=== PATIENT | male | born 1950 | race Caucasian/White ===

== ENCOUNTER 2017-05-24 13:52 | Inpatient (IN) | payer MEDICARE, OTHER ==
[~2017-05-24] VITALS: Ht 180.3 cm; Wt 99.1 kg
--- NOTE | 2017-05-24 14:09 | ERD ---
ER Documentation Chief Complaint Chief Complaint Fever HPI The patient is a 66-year-old male, presenting to the ER because of acute fever of 190 unknown duration. He is unable to provide any history, the history is obtained from mitochondrial disorders counselor in medical record Past medical history: Dysphagia, BPH, seizure, sleep apnea, GERD Past surgical history: G-tube ROS Unable to perform due to his condition Medications Home Meds Reported Medications Levetiracetam* (Keppra*) 500 Mg/5 Ml Solution, 500 MG GTB BID, BOTTLE 05/24/17 Divalproex Sodium* (Depakote* Sprinkle) 125 Mg Cap.sprink, 1000 MG GTB TID, #90 CAP 05/24/17 Dextran 70/Hypromellose (Artificials Tears Drops) 30 Ml Drops, 1 DROP BOTH EYES BID, BOTTLE 05/24/17 Magnesium Hydroxide* (Milk Of Magnesia*) 400 Mg/5 Ml Oral.susp, 30 ML GTB QHS Y for CONSTIPATION, ML 05/24/17 Bisacodyl* (Dulcolax*) 5 Mg Tablet.dr, 10 MG GTB Q48 Y for CONSTIPATION, TAB 05/24/17 Esomeprazole Mag Trihydrate (Nexium) 40 Mg Capsule.dr, 40 MG GTB AC BREAKFAST, # 30 CAP 05/24/17 Ascorbic Acid* (Vitamin C*) 500 Mg Capsule.sa, 500 MG GTB DAILY, CAP 05/24/17 Acetaminophen* (Acetaminophen* Susp) 325 Mg/10.15 Ml Solution, 325 MG GTB BID Y for PAIN, ML 05/24/17 Multivitamins* (Theragran*) 1 Tab Tab, 1 TAB GTB DAILY, TAB 05/24/17 Allergies Allergies: Coded Allergies: Penicillins (Unverified Allergy, Unknown, 05/24/17) aripiprazole (Unverified Allergy, Unknown, 05/24/17) Physical Exam Vitals Vital Signs Date Time Temp Pulse Resp B/P Pulse Ox O2 Delivery O2 Flow Rate FiO2 05/24/17 15:35 101.0 116 30 112/70 96 Nasal Cannula 05/24/17 14:27 Nasal Cannula 3 05/24/17 14:08 101.6 127 31 95/57 90 Physical Exam Const: No acute distress.Dehydrated Head: Atraumatic. Eyes: Normal Conjunctiva. ENT: Normal External Ears, Nose and Mouth. Neck: Full range of motion. No meningismus. Resp: Clear to auscultation bilaterally. Cardio: Regular Tachycardic Abd: Soft, non distended, normal bowel sounds, non tender. Skin: No petechiae or rashes. Back: No midline or flank tenderness. Ext: No cyanosis, or edema. Neur: Unable to perform due to his condition Psych: Unable to perform due to his condition Result Diagram: 05/24/17 1430 05/24/17 1430 Results 24 hrs Laboratory Tests Test 05/24/17 14:30 05/24/17 14:44 05/24/17 15:20 05/24/17 15:33 White Blood Count 23.310^3/ul Red Blood Count 4.5210^6/ul Hemoglobin 12.8g/dl Hematocrit 39.7% Mean Corpuscular Volume 87.8fl Mean Corpuscular Hemoglobin 28.3pg Mean Corpuscular Hemoglobin Concent 32.2g/dl Red Cell Distribution Width 17.5% Platelet Count 00009^3/UL Mean Platelet Volume 11.1fl Neutrophils % 85.1% Lymphocytes % 3.1% Monocytes % 11.1% Eosinophils % 0.0% Basophils % 0.1% Nucleated Red Blood Cells % 0.0/100WBC Neutrophils # 19.910^3/ul Lymphocytes # 0.710^3/ul Monocytes # 2.610^3/ul Eosinophils # 0.010^3/ul Basophils # 0.010^3/ul Nucleated Red Blood Cells # 0.010^3/ul Prothrombin Time 14.4Sec Prothrombin Time Ratio 1.1 INR International Normalized Ratio 1.12 Activated Partial Thromboplast Time 39.4Sec Sodium Level 140mmol/L Potassium Level 4.1mmol/L Chloride Level 99mmol/L Carbon Dioxide Level 26mmol/L Anion Gap 19 Blood Urea Nitrogen 27mg/dl Creatinine 1.24mg/dl Glucose Level 160mg/dl Calcium Level 8.9mg/dl Total Bilirubin 0.5mg/dl Direct Bilirubin 0.00mg/dl Indirect Bilirubin 0.5mg/dl Aspartate Amino Transf (AST/SGOT) 21IU/L Alanine Aminotransferase (ALT/SGPT) 25IU/L Alkaline Phosphatase 75IU/L Troponin I 0.041ng/ml Total Protein 7.8g/dl Albumin 3.7g/dl Globulin 4.10g/dl Albumin/Globulin Ratio 0.90 Lactic Acid Level 3.2mmol/L Urine Color YELLOW Urine Clarity CLEAR Urine pH 6.0 Urine Specific [place] 1.014 Urine Ketones NEGATIVEmg/dL Urine Nitrite NEGATIVEmg/dL Urine Bilirubin NEGATIVEmg/dL Urine Urobilinogen NEGATIVEmg/dL Urine Leukocyte Esterase 3+Telly/ul Urine Microscopic RBC 6/HPF Urine Microscopic WBC 33/HPF Urine Bacteria FEW/HPF Urine Mucus FEW/HPF Urine Hemoglobin 2+mg/dL Urine Glucose NEGATIVEmg/dL Urine Total Protein NEGATIVEmg/dl Bedside Urine pH (LAB) 6.0 Bedside Urine Protein (LAB) 1+ Bedside Urine Glucose (UA) Negative Bedside Urine Ketones (LAB) Negative Bedside Urine Blood 2+ Bedside Urine Nitrite (LAB) Positive Bedside Urine Leukocyte Esterase (L 3+ Test 05/24/17 15:55 Lactic Acid Level 2.4mmol/L Current Medications Medications (Trade) Dose Ordered Sig/Lopez Route PRN Reason Start Time Stop Time Status Last Admin Dose Admin Sodium Chloride (NS) 2,820 ml @ 2,820 mls/hr BOLUS X1 ONCE IV 05/24/17 14:30 05/24/17 15:29 DC 05/24/17 14:36 Acetaminophen 650 mg 650 mg ONCE ONCE MI 05/24/17 16:30 05/24/17 16:31 DC Meropenem/Sodium Chloride (Merrem 500mg/50 ml(Pmx)) 50 ml @ 100 mls/hr ONCE STAT IVPB 05/24/17 16:31 05/24/17 17:00 DC 05/24/17 16:46 Procedures/MDM [place] [id number] Radiology Main Line: [phone] DIAGNOSTIC IMAGING REPORT Patient: NATO BALTAZAR : 1950 Age: 66 Sex: M MR #: [id number] DOS: 05/24/17 1415 Ordering MD: AGUSTO CATHERINE MD Location: E/R Room/Bed: PROCEDURE: Chest xray. CLINICAL INDICATION: Possible sepsis TECHNIQUE: A portable semiupright AP view of the chest was obtained. COMPARISON: None. FINDINGS: The cardiac silhouette is mildly enlarged. Lung volumes are low. There is mild pulmonary vascular congestion. The left lower lung zone is incompletely evaluated due to superimposition of the patient's hand. No focal consolidation is identified in the right lung. There is no evidence of a pleural effusion or pneumothorax. The skeletal structures and soft tissues are unremarkable. IMPRESSION: Mild cardiomegaly. Low lung volumes. Mild pulmonary vascular congestion. RPTAT:HKMK .Amber Palma MD, MD Date Time Electronically viewed and signed by .Amber Palma MD, MD on 05/24/2017 16: 09 .K/ CC: AGUSTO CATHERINE MD EKG: Read by emergency physician Rate/Rhythm: Sinus tachycardia 119 beats/min QRS, ST, T-waves: No ST elevation, no T inversion, Inferior lateral ST and T abnormality Impression: Abnormal EKG MEDICAL MAKING DECISION: The patient is a 66-year-old male, presenting with acute severe sepsis, acute cystitis, acute dehydration. He was treated with normosaline 30 mL of local, IV, vancomycin IV, meropenem IV The differential diagnoses considered include but are not limited to pneumonia, pyelonephritis Admit MDM: Patient's infectious symptoms have not stabilized and the patient is at risk of rapid decompensation. The patient will be admitted for careful hydration, antibiotic therapy, and infectious source control. Severe Sepsis criteria: Infectious source: UTI End organ damage indicated by: Lactate > 2.0 mmol/L Hypotension (SBP < 90 or >40 mmHG drop or MAP < 65) Acute Resp Failure (sat < 92% w/o oxygen) Chief Crew Scheduler > 2.0 Sepsis Management: Time of recognition of severe sepsis/septic shock:4:30 pm Within 3 hours of recognition: Blood cultures x 2 before broad-spectrum antibiotics: Yes 30 ml/kg NS bolus completed Initial lactate 3.2 Repeat lactate pending Septic Shock Assessment: Any lactic acid > 4.0 no Persistent hypotension (SBP < 90 or 40 mmHg drop, MAP < 65) despite 30 mL/kg IV fluid bolusno Critical Care: Critical care time 35 minutes excluding billable procedures Emergent fluid management while maintaining close respiratory support. Provision of immediate and broad-spectrum antibiotic therapy. Simultaneous assessment for possible sources in order to direct targeted therapy. Consideration for invasive and chemical support to prevent cardiopulmonary collapse. Departure Diagnosis: Primary Impression: Severe sepsis Additional Impressions: UTI (urinary tract infection) Dehydration Condition: Stable Comments I discussed the findings with the patient. I discussed the patient with the on- call hospitalist Dr. Garner at 4:45 PM. who was made aware of the lab, the treatment, the patient condition. The patient is admitted to telemetry Disclaimer: Inadvertent spelling and grammatical errors are likely due to EHR/ dictation software use and do not reflect on the overall quality of patient care. Also, please note that the electronic time recorded on this note does not necessarily reflect the actual time of the patient encounter. AGUSTO CATHERINE MD May 24, 2017 14:09
[2017-05-24] MEDS ORDERED: SOD CHLORIDE 0.9% IV ONE (14:30)
[2017-05-24 15:09] LABS: ABNORMAL IP MESSAGE 1; BASOPHILS % 0.1 % (0.0-2.0); HEMATOCRIT 39.7 % (42.0-52.0); HEMOGLOBIN 12.8 g/dl (14.0-18.0); LYMPHOCYTES # 0.7 10^3/ul (0.8-2.9); LYMPHOCYTES % 3.1 % (15.0-51.0); MEAN CORPUSCULAR HEMOGLOBIN 28.3 pg (29.0-33.0); MEAN CORPUSCULAR HGB CONC 32.2 g/dl (32.0-37.0); MEAN CORPUSCULAR VOLUME 87.8 fl (82.0-101.0); MEAN PLATELET VOLUME 11.1 fl (7.4-10.4); MONOCYTE # 2.6 10^3/ul (0.3-0.9); MONOCYTES % 11.1 % (0.0-11.0); NEUTROPHIL # 19.9 10^3/ul (1.6-7.5); NEUTROPHILS % 85.1 % (39.0-77.0); PLATELET COUNT 236 10^3/UL (140-415); POSITIVE DIFF @See below; RED BLOOD COUNT 4.52 10^6/ul (4.70-6.10); RED CELL DISTRIBUTION WIDTH 17.5 % (11.5-14.5); WHITE BLOOD COUNT 23.3 10^3/ul (4.8-10.8)
[2017-05-24 15:29] LABS: INR 1.12; PROTIME 14.4 Sec (12.2-14.2); PT RATIO 1.1
[2017-05-24 15:30] LABS: PARTIAL THROMBOPLASTIN TIME 39.4 Sec (25.0-35.0)
[2017-05-24 15:32] LABS: ALBUMIN 3.7 g/dl (3.3-4.9); ALBUMIN/GLOBULIN RATIO 0.9; BILIRUBIN,INDIRECT 0.5 mg/dl (0-1.1); BILIRUBIN,TOTAL 0.5 mg/dl (0.2-1.3); CALCIUM 8.9 mg/dl (8.4-10.2); CREATININE 1.24 mg/dl (0.61-1.24); POTASSIUM 4.1 mmol/L (3.5-5.1); TOTAL PROTEIN 7.8 g/dl (6.1-8.1)
[2017-05-24 15:34] LABS: URINE BLOOD (Dip) POC 2+ (NEGATIVE)
[2017-05-24 15:42] LABS: TROPONIN-I 0.041 ng/ml (0.00-0.12)
[2017-05-24 15:53] LABS: ADD UMIC YES; UR ASCORBIC ACID 40 mg/dL (NEGATIVE); UR BACTERIA FEW /HPF (NONE SEEN); UR BILIRUBIN (Dip) NEGATIVE (NEGATIVE); UR BLOOD (Dip) 2+ mg/dL (NEGATIVE); UR CLARITY CLEAR (CLEAR); UR COLOR YELLOW (YELLOW); UR GLUCOSE (Dip) NEGATIVE (NEGATIVE); UR KETONES (Dip) NEGATIVE (NEGATIVE); UR LEUKOCYTE ESTERASE (Dip) 3+ Leu/ul (NEGATIVE); UR MUCUS FEW /HPF (NONE SEEN); UR NITRITE (Dip) NEGATIVE (NEGATIVE); UR RBC 6 /HPF (0-5); UR SPECIFIC GRAVITY (Dip) 1.014 (1.003-1.030); UR TOTAL PROTEIN (Dip) NEGATIVE (NEGATIVE); UR UROBILINOGEN (Dip) NEGATIVE (NEGATIVE)
[2017-05-24] MEDS ORDERED: MULTI GTB (16:10)
--- NOTE | 2017-05-24 16:10 | RADRPT ---
PROCEDURE: Chest xray. CLINICAL INDICATION: Possible sepsis TECHNIQUE: A portable semiupright AP view of the chest was obtained. COMPARISON: None. FINDINGS: The cardiac silhouette is mildly enlarged. Lung volumes are low. There is mild pulmonary vascular co ngestion. The left lower lung zone is incompletely evaluated due to superimposition of the patient's hand. No focal consolidation is identified in the right lung. There is no evidence of a pleural eff usion or pneumothorax. The skeletal structures and soft tissues are unremarkable. IMPRESSION: Mild cardiomegaly. Low lung volumes. Mild pulmonary vascular congestion. RPTAT:HKMK .Amber Palma MD, MD Date Time Electronically viewed and signed by .Amber Palma MD, on 05/24/2017 16:09 .K/
[2017-05-24] MEDS ORDERED: ACET325S GTB (16:11)
[2017-05-24] MEDS ORDERED: ASCO500C7 GTB (16:12)
[2017-05-24] MEDS ORDERED: ESOM40CA GTB (16:12)
[2017-05-24] MEDS ORDERED: BISA-57 GTB (16:13)
[2017-05-24] MEDS ORDERED: MAGN400O4 GTB (16:14)
[2017-05-24] MEDS ORDERED: DEXT30DR5 BOTH EYES (16:15)
[2017-05-24] MEDS ORDERED: LEVE500S8 GTB (16:17)
[2017-05-24] MEDS ORDERED: DIVA125C11 GTB (16:17)
[2017-05-24] MEDS ORDERED: ACETAMINOPHEN 650 MG SUPP PR ONE (16:30)
[2017-05-24] MEDS ORDERED: MEROPENEM 500MG/50 ML (PMX) 50 ML IVPB STA (16:31)
[2017-05-24] MEDS ORDERED: ACETAMINOPHEN 650MG/20.3ML CUP NGT ONE (17:00)
[2017-05-24] MEDS ORDERED: VANCOMYCIN 1 GM (PMX) 250 ML IVPB SCH (17:00)
[2017-05-24 17:18] VITALS: TEMP 100.9
[2017-05-24] MEDS ORDERED: SOD CHLORIDE 0.9% 1,000 ML IV SCH (17:37)
[2017-05-24] MEDS ORDERED: NACL 0.9% 3 ML SYG IV SCH (18:00)
[2017-05-24] MEDS ORDERED: LORAZEPAM 2 MG INJ IV PRN (18:00)
[2017-05-24] MEDS ORDERED: ONDANSETRON 4 MG INJ IV PRN (18:00)
[2017-05-24] MEDS ORDERED: BISACODYL (EC) 5 MG TAB PO PRN (18:00)
[2017-05-24] MEDS ORDERED: HYDROCODONE/APAP (5/325) TAB PO PRN (18:00)
[2017-05-24] MEDS ORDERED: ALBUTEROL/IPRATROPIUM (NEB) 3 ML AMP HHN PRN (18:00)
[2017-05-24] MEDS ORDERED: morphine 2 MG INJ IV PRN (18:00)
[2017-05-24] MEDS ORDERED: ACETAMINOPHEN 325 MG TAB PO PRN (18:00)
[2017-05-24] MEDS ORDERED: VANCOMYCIN IV PER PHARMACY XX SCH (18:00)
--- NOTE | 2017-05-24 18:04 | HP ---
Date/Time of Note Date/Time of Note DATE: 05/24/17 TIME: 17:55 Assessment/Plan VTE Prophylaxis VTE Prophylaxis Intervention: SCD's Lines/Catheters Urinary Cath still in place: Yes Reason Cath still needed: terminal illness/intractable pain Assessment/Plan Chief Complaint/Hosp Course o: Physical exam General: Patient is laying in bed, no acute distress Mentation: Patient is alert, but baseline not oriented Head: Normocephalic atraumatic Eyes: EOMI, pupils reactive to light, but sluggish Neck: Supple, nontender, midline Respiratory: coarse to auscultation bilaterally Cardiovascular: tachycardic, no obvious murmurs Gastrointestinal: non-tender to palpation, bowel sounds heard. Neurological: Moves all extremities spontaneously and to noxious stimuli Skin: No new skin lesions Patient is a 66-year-old male with chronic encephalopathy of unknown cause and epilepsy who presents to [facility] for tachycardia and fever found to have UTI and sepsis Assessment and plan Sepsis secondary to UTI -Gentle hydration, patient already received a bolus in the ED, evidence of possible CHF, will hydrate judiciously -Antibiotics, broad-spectrum for now -Cultures -Trend lactic acid Chronic encephalopathy -Unknown cause, no information in chart, CT head pending -PEG tube is placed -Likely at baseline as nursing report states that this is patient's baseline Epilepsy -Incomplete records from nursing home facility, however a Keppra and Depakote level is ordered and therapeutic, will assume patient is on antiepileptics, -Continue Keppra and Depakote with Depakote levels daily to ensure therapeutic values Hypotension -Mild, resolved with fluids Severe diarrhea -Unlikely C. difficile, however WBC stool and C. difficile pending UTI -Broad-spectrum antibiotics for now -Follow-up with sensitivities Disposition -Patient is DNR -Stabilize and tailor antibiotics to sensitivities Problems: HPI/ROS Admit Date/Time Admit Date/Time May 24, 2017 at 16:47 Hx of Present Illness Patient is a 66-year-old male sent from nursing home facility with a very little information and no HPI who presents to [facility] for tachycardia, and fever. According to nursing signout the patient has chronic encephalopathy and is currently at baseline which is alert but not oriented. Patient has a PEG tube and is laying on the bed with minimal movement. Patient's information was taken from the chart, patient is DO NOT RESUSCITATE per chart and there is a signed form. Patient also responds to noxious stimuli vigorously and moves all extremities. Patient appears to have adequate caloric intake but the reason for his encephalopathy is unknown at this time,. Some information can be taken from the chart which includes a diagnosis of epilepsy with Keppra and Depakote levels which were therapeutic. Assuming patient's is at baseline mentation, it appears patient has been admitted for UTI. Past medical history; unlikely complete, chronic encephalopathy of unknown cause , dysphasia, PEG tube, BPH, GERD, dyskinesia, epilepsy, sleep apnea PMH/Family/Social Social History Smoking Status: Unknown if ever smoked Exam/Review of Systems Vital Signs Vitals Vital Signs Date Time Temp Pulse Resp B/P Pulse Ox O2 Delivery O2 Flow Rate FiO2 05/24/17 17:18 100.9 118 25 114/75 96 Nasal Cannula 3.0 Labs Result Diagram: 05/24/17 1430 05/24/17 1430 Medications Medications Current Medications Vancomycin HCl 250 ml @ 125 mls/hr ONCE IVPB Last administered on 05/24/17t 17:33; Admin Dose 125 MLS/HR; Start 05/24/17 at 17:00; Stop 05/24/17 at 18:59 Sodium Chloride (NS) 1,000 ml @ 50 mls/hr Q20H IV ; Start 05/24/17 at 17:37; Status UNV Lorazepam (Ativan) 0.5 mg Q6H PRN IV ANXIETY; Start 05/24/17 at 18:00; Status UNV Ondansetron HCl (Zofran Inj) 4 mg Q6H PRN IV NAUSEA AND/OR VOMITING; Start at 18:00; Status UNV Acetaminophen (Tylenol Tab) 650 mg Q6H PRN PO PAIN LEVEL 1-3 OR FEVER; Start 05/24/17 at 18:00 Acetaminophen/ Hydrocodone Bitart ([place] (5/325)) 1 tab Q6H PRN PO PAIN LEVEL 4 -6; Start 05/24/17 at 18:00; Status UNV Morphine Sulfate (morphine) 2 mg Q4H PRN IV PAIN LEVEL 7-10; Start 05/24/17 at 18:00; Status UNV Bisacodyl (Dulcolax) 5 mg DAILY PRN PO CONSTIPATION; Start 05/24/17 at 18:00 Famotidine (Pepcid Iv) 20 mg Q12 IV ; Start 05/24/17 at 21:00; Status UNV Eye Lubricant 1 drop 1 drop TID BOTH EYES ; Start 05/24/17 at 21:00 Meropenem/Sodium Chloride (Merrem 1 Gm/50 ml (Pmx)) 50 ml @ 100 mls/hr Q12 IVPB ; Start 05/24/17 at 21:00; Status UNV Levetiracetam (Keppra) 500 mg BID PEG ; Start 05/24/17 at 21:00; Status UNV Valproate Sodium (Depakene Liquid Cup) 250 mg TID NGT ; Start 05/24/17 at 21:00 ; Status UNV JAGDISH TELLO May 24, 2017 18:04
[2017-05-24 18:08] VITALS: PULSE 118
[2017-05-24] MEDS ORDERED: MAGNESIUM HYDROXIDE 30ML CUP GTB PRN (18:30)
[2017-05-24 18:49] VITALS: BP 116/64; PULSE 117; RESP 18
[2017-05-24 19:29] LABS: VALPROATE 48 ug/ml (50-100)
[2017-05-24 19:35] LABS: B-TYPE NATRIURETIC PEPTIDE 4120 PG/ML (0-125)
[2017-05-24] MEDS ORDERED: VANCOMYCIN 750 MG in DEXTROSE 5% 150 ML IVPB SCH (20:00)
[2017-05-24] MEDS: ALBUTEROL/IPRATROPIUM (NEB) 3 ML AMP HHN SCH (20:12)
[2017-05-24] MEDS: ARTIFICIAL TEARS 15 ML OPH BOTH EYES SCH (20:46)
[2017-05-24] MEDS: LEVETIRACETAM (100 MG/ML) 5ML CUP GTB SCH (20:46)
[2017-05-24] MEDS: DIVALPROEX SPRINKLE 125 MG CAP GTB SCH (20:47)
[2017-05-24] MEDS: FAMOTIDINE 20 MG INJ IV SCH (20:47)
[2017-05-24 20:49] VITALS: PULSE 100
[2017-05-24] MEDS: MEROPENEM 1 GM/50ML(PMX) 50 ML IVPB SCH (20:49)
[2017-05-24] MEDS ORDERED: LEVETIRACETAM 500 MG TAB PEG SCH (21:00)
[2017-05-24] MEDS ORDERED: VALPROIC ACID LIQUID CUP 250 MG/5 ML CUP NGT SCH (21:00)
[2017-05-24 21:27] VITALS: BP 112/74; RESP 18
[2017-05-24 23:22] VITALS: Ht 180.3 cm; Wt 99.1 kg
[2017-05-25] VITALS (14 sets, daily range): BP systolic 96–140; BP diastolic 54–88; PULSE 87–108; RESP 16–22
--- NOTE | 2017-05-25 07:28 | RADRPT ---
PROCEDURE: CT Brain without contrast. CLINICAL INDICATION: Chronic encephalopathy. TECHNIQUE: A CT of the brain was performed on a GE 64-slice CT scanner utilizing axial imaging fro m the skull base through the vertex without intravenous contrast. Multiplanar reformatted images wer e made. One or more the following dose reduction techniques were utilized: Automated exposure contr ol, adjustment of the mA/ or kV according to patient's size, or use of iterative reconstruction tech nique. DICOM images are available for review. The CTDIvol is 44.7 mGy and the DLP is 900.3 mGycm. COMPARISON: None. FINDINGS: There is no intracranial hemorrhage, mass effect, or midline shift. No extra-axial fluid collection is seen. Moderately severe atrophy is identified with compensatory ventricular and sulcal enlargem ent. Moderately severe decreased attenuation is seen in the periventricular and deep white matter, compatible with microvascular ischemic disease. There is evidence of hypodensity extending into the subcortical white matter, particulate the frontal and temporal lobes, likely reflective of extensive microvascular ischemic change. No convincing cortical infarct is evident. The osseous structures an d visualized paranasal sinuses are unremarkable. IMPRESSION: 1. No evidence of acute intracranial pathology. 2. Moderately severe diffuse atrophy. 3. There is moderately severe microvascular ischemic disease in the periventricular and deep white matter. RPTAT: HJAH .Tia Mancia MD, Date Time Electronically viewed and signed by .Tia Mancia MD, on 05/25/2017 07:28 .H/
--- NOTE | 2017-05-25 08:06 | RADRPT ---
PROCEDURE: US Lower extremity Venous. CLINICAL INDICATION: Right leg edema TECHNIQUE: Multiple sonographic images of the right lower extremity deep venous system was obtaine d utilizing grayscale, color-flow, compressive sonography and doppler imaging with augmentation. Th e images were reviewed on a PACS workstation. COMPARISON: None. FINDINGS: There is normal compressibility and flow within the right common femoral, femoral, posterior tibial, peroneal and popliteal veins. RPTAT: AA IMPRESSION: No sonographic evidence for deep venous thrombosis. .Vidal Chawla MD, MD Date Time Electronically viewed and signed by .Vidal Chawla MD, MD on 05/25/2017 08:06 .S/
[2017-05-25] MEDS: ALBUTEROL/IPRATROPIUM (NEB) 3 ML AMP HHN SCH ×3 (08:25→19:41)
[2017-05-25 08:31] LABS: ABNORMAL IP MESSAGE 1; BASOPHILS % 0.1 % (0.0-2.0); EOSINOPHILS # 0.1 10^3/ul (0.0-0.5); EOSINOPHILS % 0.3 % (0.0-7.0); HEMATOCRIT 32.4 % (42.0-52.0); HEMOGLOBIN 10.1 g/dl (14.0-18.0); LYMPHOCYTES % 10.1 % (15.0-51.0); MEAN CORPUSCULAR HEMOGLOBIN 28.1 pg (29.0-33.0); MEAN CORPUSCULAR HGB CONC 31.2 g/dl (32.0-37.0); MEAN PLATELET VOLUME 11.5 fl (7.4-10.4); MONOCYTE # 2.1 10^3/ul (0.3-0.9); MONOCYTES % 10.8 % (0.0-11.0); NEUTROPHIL # 15.4 10^3/ul (1.6-7.5); NEUTROPHILS % 78.3 % (39.0-77.0); PLATELET COUNT 201 10^3/UL (140-415); POSITIVE DIFF @See below; RED CELL DISTRIBUTION WIDTH 17.6 % (11.5-14.5); WHITE BLOOD COUNT 19.7 10^3/ul (4.8-10.8)
[2017-05-25 08:52] LABS: ALBUMIN 2.6 g/dl (3.3-4.9); ALBUMIN/GLOBULIN RATIO 0.81; BILIRUBIN,INDIRECT 0.4 mg/dl (0-1.1); BILIRUBIN,TOTAL 0.4 mg/dl (0.2-1.3); CALCIUM 8.3 mg/dl (8.4-10.2); CHOL/HDL RATIO 5.9 RATIO; CREATININE 0.85 mg/dl (0.61-1.24); MAGNESIUM 2.4 mg/dl (1.7-2.5); POTASSIUM 4.5 mmol/L (3.5-5.1); TOTAL PROTEIN 5.8 g/dl (6.1-8.1)
[2017-05-25] MEDS: LEVETIRACETAM (100 MG/ML) 5ML CUP GTB SCH ×2 (09:10→20:23)
[2017-05-25] MEDS: ARTIFICIAL TEARS 15 ML OPH BOTH EYES SCH ×3 (09:10→20:24)
[2017-05-25] MEDS: ASCORBIC ACID 500 MG TAB GTB SCH (09:11)
[2017-05-25] MEDS: DIVALPROEX SPRINKLE 125 MG CAP GTB SCH ×3 (09:11→20:25)
[2017-05-25] MEDS: MEROPENEM 1 GM/50ML(PMX) 50 ML IVPB SCH ×2 (09:11→20:22)
[2017-05-25] MEDS: FAMOTIDINE 20 MG INJ IV SCH ×2 (09:11→20:20)
[2017-05-25] MEDS: MULTIVITAMINS 30 ML CUP GTB SCH (09:12)
[2017-05-25 09:22] LABS: THYROID STIMULATING HORMONE 1.62 MIU/L (0.465-4.680)
[2017-05-25] MEDS: VANCOMYCIN 1.25 GM in SOD CHLORIDE 0.9% 250 ML IVPB SCH ×2 (10:07→22:26)
--- NOTE | 2017-05-25 12:38 | PN ---
Date/Time of Note Date/Time of Note DATE: 05/25/17 TIME: 12:34 Assessment/Plan VTE Prophylaxis VTE Prophylaxis Intervention: SCD's Lines/Catheters IV Catheter Type (from Nrsg): Peripheral IV Urinary Cath still in place: Yes Reason Cath still needed: terminal illness/intractable pain Assessment/Plan Chief Complaint/Hosp Course s: . unchanged from yesterday, patient still non-verbal, likely baseline o: Physical exam General: Patient is laying in bed, no acute distress Mentation: Patient is alert, but baseline not oriented Head: Normocephalic atraumatic Eyes: EOMI, pupils reactive to light, but sluggish Neck: Supple, nontender, midline Respiratory: coarse to auscultation bilaterally Cardiovascular: tachycardic, no obvious murmurs Gastrointestinal: non-tender to palpation, bowel sounds heard. Neurological: Moves all extremities spontaneously and to noxious stimuli Skin: No new skin lesions Patient is a 66-year-old male with chronic encephalopathy of unknown cause and epilepsy who presents to [facility] for tachycardia and fever found to have UTI and sepsis Assessment and plan Sepsis secondary to UTI -Gentle hydration, patient already received a bolus in the ED, evidence of possible CHF, will hydrate judiciously. IVF stopped, tube feeds with flushes instead for now given latic acid wnl -Antibiotics, broad-spectrum for now -Cultures -lactic acid wnl now Chronic encephalopathy -Unknown cause, no information in chart, CT head shows no acute issues, sister is POA, nursing informed to ask sister next time she calls why he has chronic encephalopathy -PEG tube -Likely at baseline as nursing report states that this is patient's baseline hematuria -traumatic from [facility]on placement -nursing will flush, if still has blood, will start CBI Epilepsy -Incomplete records from [facility], however a Keppra and Depakote level is ordered per SNF labs, with remote dosages with transfer documents -Continue Keppra and Depakote with Depakote levels daily to ensure therapeutic values, will start at previous dose given at SNF and will adjust Hypotension -Mild, resolved with fluids Severe diarrhea -Unlikely C. difficile, however WBC stool and C. difficile pending UTI -Broad-spectrum antibiotics for now -Follow-up with sensitivities Disposition -Patient is DNR -Stabilize and tailor antibiotics to sensitivities -DC back to SNF once 24-48 hrs SIRS free or improving Problems: Exam/Review of Systems Vital Signs Vitals Vital Signs Date Time Temp Pulse Resp B/P Pulse Ox O2 Delivery O2 Flow Rate FiO2 05/25/17 12:28 89 05/25/17 11:32 98.4 18 113/66 98 05/25/17 08:30 Nasal Cannula 3.0 Intake and Output 05/24/17 05/24/17 05/25/17 15:00 23:00 07:00 Intake Total 250 ml 1350 ml Output Total 525 ml Balance 250 ml 825 ml Results Result Diagram: 05/25/17 0707 05/25/17 0707 Results 24 hrs Laboratory Tests Test 05/24/17 14:30 05/24/17 14:44 05/24/17 15:20 05/24/17 15:33 White Blood Count 23.3 H Red Blood Count 4.52 L Hemoglobin 12.8 L Hematocrit 39.7 L Mean Corpuscular Volume 87.8 Mean Corpuscular Hemoglobin 28.3 L Mean Corpuscular Hemoglobin Concent 32.2 Red Cell Distribution Width 17.5 H Platelet Count 236 Mean Platelet Volume 11.1 H Neutrophils % 85.1 H Lymphocytes % 3.1 L Monocytes % 11.1 H Eosinophils % 0.0 Basophils % 0.1 Nucleated Red Blood Cells % 0.0 Neutrophils # 19.9 H Lymphocytes # 0.7 L Monocytes # 2.6 H Eosinophils # 0.0 Basophils # 0.0 Nucleated Red Blood Cells # 0.0 Prothrombin Time 14.4 H Prothrombin Time Ratio 1.1 INR International Normalized Ratio 1.12 Activated Partial Thromboplast Time 39.4 H Sodium Level 140 Potassium Level 4.1 Chloride Level 99 Carbon Dioxide Level 26 Anion Gap 19 H Blood Urea Nitrogen 27 H Creatinine 1.24 Glucose Level 160 Calcium Level 8.9 Total Bilirubin 0.5 Direct Bilirubin 0.00 Indirect Bilirubin 0.5 Aspartate Amino Transf (AST/SGOT) 21 Alanine Aminotransferase (ALT/SGPT) 25 Alkaline Phosphatase 75 Troponin I 0.041 Total Protein 7.8 Albumin 3.7 Globulin 4.10 H Albumin/Globulin Ratio 0.90 Lactic Acid Level 3.2 *H Urine Color YELLOW Urine Clarity CLEAR Urine pH 6.0 Urine Specific [place] 1.014 Urine Ketones NEGATIVE Urine Nitrite NEGATIVE Urine Bilirubin NEGATIVE Urine Urobilinogen NEGATIVE Urine Leukocyte Esterase 3+ H Urine Microscopic RBC 6 H Urine Microscopic WBC 33 H Urine Bacteria FEW A Urine Mucus FEW A Urine Hemoglobin 2+ H Urine Glucose NEGATIVE Urine Total Protein NEGATIVE Bedside Urine pH (LAB) 6.0 Bedside Urine Protein (LAB) 1+ H Bedside Urine Glucose (UA) Negative Bedside Urine Ketones (LAB) Negative Bedside Urine Blood 2+ H Bedside Urine Nitrite (LAB) Positive H Bedside Urine Leukocyte Esterase (L 3+ H Test 05/24/17 15:55 05/24/17 18:50 05/25/17 07:07 Lactic Acid Level 2.4 *H 3.0 *H 1.3 B-Type Natriuretic Peptide 4120 H Valproic Acid (Depakene) Level 48 L 26 L White Blood Count 19.7 H Red Blood Count 3.60 #L Hemoglobin 10.1 #L Hematocrit 32.4 L Mean Corpuscular Volume 90.0 Mean Corpuscular Hemoglobin 28.1 L Mean Corpuscular Hemoglobin Concent 31.2 L Red Cell Distribution Width 17.6 H Platelet Count 201 Mean Platelet Volume 11.5 H Neutrophils % 78.3 H Lymphocytes % 10.1 L Monocytes % 10.8 Eosinophils % 0.3 Basophils % 0.1 Nucleated Red Blood Cells % 0.0 Neutrophils # 15.4 H Lymphocytes # 2.0 Monocytes # 2.1 H Eosinophils # 0.1 Basophils # 0.0 Nucleated Red Blood Cells # 0.0 Sodium Level 142 Potassium Level 4.5 Chloride Level 106 Carbon Dioxide Level 28 Anion Gap 13 Blood Urea Nitrogen 24 H Creatinine 0.85 Glucose Level 133 Calcium Level 8.3 L Magnesium Level 2.4 Total Bilirubin 0.4 Direct Bilirubin 0.00 Indirect Bilirubin 0.4 Aspartate Amino Transf (AST/SGOT) 15 Alanine Aminotransferase (ALT/SGPT) 27 Alkaline Phosphatase 50 Total Protein 5.8 #L Albumin 2.6 #L Globulin 3.20 Albumin/Globulin Ratio 0.81 Triglycerides Level 127 Cholesterol Level 118 LDL Cholesterol, Calculated 73 HDL Cholesterol 20 L Cholesterol/HDL Ratio 5.9 Thyroid Stimulating Hormone (TSH) 1.620 Medications Medications Current Medications Lorazepam (Ativan) 0.5 mg Q6H PRN IV ANXIETY; Start 05/24/17 at 18:00 Ondansetron HCl (Zofran Inj) 4 mg Q6H PRN IV NAUSEA AND/OR VOMITING; Start at 18:00 Acetaminophen (Tylenol Tab) 650 mg Q6H PRN PO PAIN LEVEL 1-3 OR FEVER Last administered on 05/25/17 03:58; Admin Dose 650 MG; Start 05/24/17 at 18:00 Acetaminophen/ Hydrocodone Bitart ([place] (5/325)) 1 tab Q6H PRN PO PAIN LEVEL 4 -6; Start 05/24/17 at 18:00 Morphine Sulfate (morphine) 2 mg Q4H PRN IV PAIN LEVEL 7-10; Start 05/24/17 at 18:00 Bisacodyl (Dulcolax) 5 mg DAILY PRN PO CONSTIPATION; Start 05/24/17 at 18:00 Famotidine (Pepcid Iv) 20 mg Q12 IV Last administered on 05/25/17 09:11; Admin Dose 20 MG; Start 05/24/17 at 21:00 Eye Lubricant 1 drop 1 drop TID BOTH EYES Last administered on 05/25/17 09:10 ; Admin Dose 1 DROP; Start 05/24/17 at 21:00 Meropenem/Sodium Chloride (Merrem 1 Gm/50 ml (Pmx)) 50 ml @ 100 mls/hr Q12 IVPB Last administered on 05/25/17 09:11; Admin Dose 100 MLS/HR; Start 05/24 at 21:00 Ascorbic Acid (Vitamin C) 500 mg DAILY GTB Last administered on 05/25/17 09: 11; Admin Dose 500 MG; Start 05/25/17 at 09:00 Divalproex Sodium (Depakote Sprinkle) 1,000 mg TID GTB Last administered on 09:11; Admin Dose 1,000 MG; Start 05/24/17 at 21:00 Levetiracetam (Keppra Liquid) 500 mg BID GTB Last administered on 05/25/17 09 :10; Admin Dose 500 MG; Start 05/24/17 at 21:00 Magnesium Hydroxide (Milk Of Mag) 30 ml QHS PRN GTB CONSTIPATION; Start at 18:30 Multivitamins 30 ml 30 ml DAILY GTB Last administered on 05/25/17 09:12; Admin Dose 30 ML; Start 05/25/17 at 09:00 Vancomycin HCl/ Sodium Chloride (Vancocin/NS) 250 ml @ 83.333 mls/ hr Q12H IVPB Last administered on 11/26/17at 10:07; Admin Dose 83.333 MLS/HR; Start at 10:00 Miscellaneous Information (*Rx Drug Level Order Reminder*) VANCOMYCIN TROUGH AT 0900 ONCE ONCE XX ; Start 05/26/17 at 09:00; Stop 05/26/17 at 09:01 JAGDISH TELLO May 25, 2017 12:38
[2017-05-26] VITALS (12 sets, daily range): BP systolic 106–132; BP diastolic 55–71; PULSE 93–103; RESP 17–18
[2017-05-26] MEDS: ALBUTEROL/IPRATROPIUM (NEB) 3 ML AMP HHN SCH ×3 (07:48→20:21)
[2017-05-26 08:46] LABS: BASOPHILS % 0.1 % (0.0-2.0); EOSINOPHILS # 0.2 10^3/ul (0.0-0.5); EOSINOPHILS % 1.6 % (0.0-7.0); HEMATOCRIT 33.5 % (42.0-52.0); HEMOGLOBIN 10.5 g/dl (14.0-18.0); LYMPHOCYTES # 1.4 10^3/ul (0.8-2.9); LYMPHOCYTES % 10.4 % (15.0-51.0); MEAN CORPUSCULAR HEMOGLOBIN 28.2 pg (29.0-33.0); MEAN CORPUSCULAR HGB CONC 31.3 g/dl (32.0-37.0); MEAN CORPUSCULAR VOLUME 90.1 fl (82.0-101.0); MEAN PLATELET VOLUME 11.1 fl (7.4-10.4); MONOCYTE # 1.4 10^3/ul (0.3-0.9); MONOCYTES % 10.3 % (0.0-11.0); NEUTROPHIL # 10.5 10^3/ul (1.6-7.5); NEUTROPHILS % 77.1 % (39.0-77.0); PLATELET COUNT 225 10^3/UL (140-415); RED BLOOD COUNT 3.72 10^6/ul (4.70-6.10); RED CELL DISTRIBUTION WIDTH 17.6 % (11.5-14.5); WHITE BLOOD COUNT 13.6 10^3/ul (4.8-10.8)
--- NOTE | 2017-05-26 09:09 | RADRPT ---
PROCEDURE: XR Chest. CLINICAL INDICATION: pain TECHNIQUE: Single portable view of the chest was obtained COMPARISON: CHEST 05/24/2017 FINDINGS: There are worsening extensive bilateral perihilar and lower lobe infiltrates. There is elevation of the right diaphragm. The cardiac silhouette is mildly enlarged. The heart, lungs and mediastinum are otherwise unchanged. . RPTAT: AA IMPRESSION: Worsening extensive bilateral perihilar and lower lobe infiltrates, may represent pulmonary vascular congestion. No other significant change. Elevation of the right diaphragm. .Vidal Chawla MD, MD Date Time Electronically viewed and signed by .Vidal Chawla MD, on 05/26/2017 09:09 .S/
--- NOTE | 2017-05-26 09:57 | PN ---
Date/Time of Note Date/Time of Note DATE: 05/26/17 TIME: 09:57 Assessment/Plan VTE Prophylaxis VTE Prophylaxis Intervention: SCD's Lines/Catheters IV Catheter Type (from Nrsg): Peripheral IV Urinary Cath still in place: Yes Reason Cath still needed: skin wounds contaminated by urine Assessment/Plan Assessment/Plan 1. Sepsis secondary to UTI- resolving - Patients condition is improving and WBC trending downward. Remains afebrile - Cultures shows coag neg and will d/c Vanc and Krysta and switch to doxy 100mg BID. - lactic acid wnl now 2. Chronic encephalopathy - Unknown cause, no information in chart, CT head shows no acute issues, sister is POA, nursing informed to ask sister next time she calls why he has chronic encephalopathy - PEG tube - Likely at baseline as nursing report states that this is patient's baseline 3. hematuria- resolved - traumatic from parson placement - H/H stable 4. Epilepsy - Incomplete records from SNF, however a Keppra and Depakote level is ordered per SNF labs, with remote dosages with transfer documents - Continue Keppra and Depakote with Depakote levels daily to ensure therapeutic values 5. Hypotension- resolved 6. Severe diarrhea - Cdiff negative - will start probiotics 7. UTI - Will switch to Doxy 8. Disposition - Patient is DNR - Stabilize and tailor antibiotics to sensitivities - If WBC continues to trend downward, will d/c in next 24 hours back to SNF Subjective 24 Hr Interval Summary Free Text/Dictation Patient at baseline with no acute overnight events. Patient resting comfortably in no acute distress. Exam/Review of Systems Vital Signs Vitals Vital Signs Date Time Temp Pulse Resp B/P Pulse Ox O2 Delivery O2 Flow Rate FiO2 05/26/17 08:32 100 05/26/17 07:53 97 3.0 05/26/17 07:52 23 Nasal Cannula 05/26/17 07:42 98.6 114/71 Intake and Output 05/25/17 05/25/17 05/26/17 15:00 23:00 07:00 Intake Total 800 ml 950 ml Output Total 600 ml 700 ml Balance 200 ml 250 ml Exam General: Patient is laying in bed, no acute distress Mentation: Patient is arousable to touch Head: Normocephalic atraumatic Eyes: EOMI, pupils reactive to light, but sluggish Neck: Supple, nontender, midline Respiratory: coarse to auscultation bilaterally Cardiovascular: tachycardic, no obvious murmurs Gastrointestinal: non-tender to palpation, bowel sounds heard. Neurological: Moves all extremities spontaneously and to noxious stimuli Skin: No new skin lesions Results Result Diagram: 05/26/17 0725 05/25/17 0707 Results 24 hrs Laboratory Tests Test 05/26/17 07:25 White Blood Count 13.6 #H Red Blood Count 3.72 L Hemoglobin 10.5 L Hematocrit 33.5 L Mean Corpuscular Volume 90.1 Mean Corpuscular Hemoglobin 28.2 L Mean Corpuscular Hemoglobin Concent 31.3 L Red Cell Distribution Width 17.6 H Platelet Count 225 Mean Platelet Volume 11.1 H Neutrophils % 77.1 H Lymphocytes % 10.4 L Monocytes % 10.3 Eosinophils % 1.6 Basophils % 0.1 Nucleated Red Blood Cells % 0.0 Neutrophils # 10.5 H Lymphocytes # 1.4 Monocytes # 1.4 H Eosinophils # 0.2 Basophils # 0.0 Nucleated Red Blood Cells # 0.0 Valproic Acid (Depakene) Level 18 L Medications Medications Current Medications Lorazepam (Ativan) 0.5 mg Q6H PRN IV ANXIETY; Start 05/24/17 at 18:00 Ondansetron HCl (Zofran Inj) 4 mg Q6H PRN IV NAUSEA AND/OR VOMITING; Start at 18:00 Acetaminophen (Tylenol Tab) 650 mg Q6H PRN PO PAIN LEVEL 1-3 OR FEVER Last administered on 05/25/17 03:58; Admin Dose 650 MG; Start 05/24/17 at 18:00 Acetaminophen/ Hydrocodone Bitart ([place] (5/325)) 1 tab Q6H PRN PO PAIN LEVEL 4 -6; Start 05/24/17 at 18:00 Morphine Sulfate (morphine) 2 mg Q4H PRN IV PAIN LEVEL 7-10; Start 05/24/17 at 18:00 Bisacodyl (Dulcolax) 5 mg DAILY PRN PO CONSTIPATION; Start 05/24/17 at 18:00 Famotidine (Pepcid Iv) 20 mg Q12 IV Last administered on 05/25/17 20:20; Admin Dose 20 MG; Start 05/24/17 at 21:00 Eye Lubricant 1 drop 1 drop TID BOTH EYES Last administered on 05/25/17 20:24 ; Admin Dose 1 DROP; Start 05/24/17 at 21:00 Meropenem/Sodium Chloride (Merrem 1 Gm/50 ml (Pmx)) 50 ml @ 100 mls/hr Q12 IVPB Last administered on 05/25/17 20:22; Admin Dose 100 MLS/HR; Start 05/24 at 21:00 Ascorbic Acid (Vitamin C) 500 mg DAILY GTB Last administered on 05/25/17 09: 11; Admin Dose 500 MG; Start 05/25/17 at 09:00 Divalproex Sodium (Depakote Sprinkle) 1,000 mg TID GTB Last administered on 20:25; Admin Dose 1,000 MG; Start 05/24/17 at 21:00 Levetiracetam (Keppra Liquid) 500 mg BID GTB Last administered on 05/25/17 20 :23; Admin Dose 500 MG; Start 05/24/17 at 21:00 Magnesium Hydroxide (Milk Of Mag) 30 ml QHS PRN GTB CONSTIPATION; Start at 18:30 Multivitamins 30 ml 30 ml DAILY GTB Last administered on 05/25/17 09:12; Admin Dose 30 ML; Start 05/25/17 at 09:00 Vancomycin HCl/ Sodium Chloride (Vancocin/NS) 250 ml @ 83.333 mls/ hr Q12H IVPB Last administered on 05/25/17 22:26; Admin Dose 83.333 MLS/HR; Start at 10:00 OMID LANDEROS MD May 26, 2017 09:57
[2017-05-26 10:08] LABS: CALCIUM 8.3 mg/dl (8.4-10.2); CREATININE 0.78 mg/dl (0.61-1.24); MAGNESIUM 2.1 mg/dl (1.7-2.5); PHOSPHORUS 3.8 mg/dl (2.5-4.9); POTASSIUM 4.5 mmol/L (3.5-5.1)
[2017-05-26] MEDS: DIVALPROEX SPRINKLE 125 MG CAP GTB SCH ×3 (10:12→21:39)
[2017-05-26] MEDS: ARTIFICIAL TEARS 15 ML OPH BOTH EYES SCH ×3 (10:12→21:39)
[2017-05-26] MEDS: FAMOTIDINE 20 MG INJ IV SCH ×2 (10:13→21:38)
[2017-05-26] MEDS: LEVETIRACETAM (100 MG/ML) 5ML CUP GTB SCH ×2 (10:13→21:38)
[2017-05-26] MEDS: ASCORBIC ACID 500 MG TAB GTB SCH (10:13)
[2017-05-26] MEDS: MULTIVITAMINS 30 ML CUP GTB SCH (10:13)
[2017-05-26] MEDS: VANCOMYCIN 1.25 GM in SOD CHLORIDE 0.9% 250 ML IVPB SCH (10:20)
[2017-05-26] MEDS: MEROPENEM 1 GM/50ML(PMX) 50 ML IVPB SCH (10:21)
[2017-05-26] MEDS: DOXYCYCLINE 100 MG TAB PO SCH (21:38)
[2017-05-26] MEDS: LACTOBACILLUS RHAMNOSUS CAP PO SCH (21:39)
--- NOTE | 2017-05-26 22:15 | RADRPT ---
Echocardiogram Report Patient Name: NATO BALTAZAR Gender: Male Date: 1950 Study Date: 25-May-2017 Drafting Technician: [facility] Location: I Ref. Physician: JAGDISH TELLO Quality: Adequate Procedures: Transthoracic echocardiogram with 2D, M-Mode, and Doppler examination, no subcostal images due to feeding tube placement. Indications: Questionable Congestive Heart Failure. 2D/M Mode Doppler Measurement Value Normal Ranges Measurement Value Normal Ranges AoR Diam MM 3.6 cm AV Peak Placido 1.0 m/sec ACS MM 2.0 cm AV Peak PG 4.2 mmHg LVIDd 2D 5.8 3.5 - 5.6 cm LVOT Peak Placido 0.7 m/sec LVIDs 2D 5.3 2.1 - 4.1 cm LVOT Peak PG 1.8 mmHg LVPWd 2D 0.8 0.6 - 1.1 cm PV Peak Placido 1.0 m/sec IVSd 2D 1.0 0.6 - 1.1 cm PV Peak PG 4.0 mmHg EDV 2D 166.3 cm3 ESV 2D 151.0 cm3 LA Dimen 2D 4.7 2.3 - 4.0 cm Findings Left Ventricle: Normal left ventricular wall thickness. Mild enlargement of left ventricle cavity. Mild global left ventricular systolic dysfunction. 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 This aneurysm appears without thrombus. Ejection fraction is visually estimated at 40 %. Abnormal Diastolic Function. E/E`=12. Right Ventricle: Normal right ventricular size. Normal right ventricular systolic function. Left Atrium: There is moderate enlargement of left atrium. Right Atrium: The right atrium is normal in size. Atrial Septum: Not well visualized. Mitral Valve: Normal appearance of the mitral valve. Mild to moderate mitral valve regurgitation. Aortic Valve: Normal appearance of the aortic valve. No significant aortic stenosis or insufficiency. Tricuspid Valve: Normal appearance of the tricuspid valve. There is trace tricuspid regurgitation. Pulmonic Valve: Normal pulmonic valve appearance. No evidence of pulmonic regurgitation. Pericardium: Normal pericardium with no significant pericardial effusion. No pleural effusion noted. Aorta: Normal aortic root. IVC: The IVC is not well visualized. Pulmonary Artery: Normal pulmonary artery size. Conclusions 1.Normal left ventricular wall thickness. Mild enlargement of left ventricle cavity. Mild global left ventricular systolic dysfunction. 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 This aneurysm appears without thrombus. Ejection fraction is visually estimated at 40 %. Abnormal Diastolic Function. E/E`=12. 2.There is moderate enlargement of left atrium. 3.Normal appearance of the mitral valve. Mild to moderate mitral valve regurgitation. 4.Normal appearance of the tricuspid valve. There is trace tricuspid regurgitation. Electronically Signed By: Romeo Dinh 26-May-2017 22:14:14 -0800 Patient Name: NATO BALTAZAR Study Date: 25-May-2017 [id number]
[2017-05-27] VITALS (14 sets, daily range): BP systolic 101–140; BP diastolic 57–100; PULSE 88–127; RESP 18–20
[2017-05-27] MEDS: ALBUTEROL/IPRATROPIUM (NEB) 3 ML AMP HHN SCH ×3 (08:00→20:01)
[2017-05-27] MEDS: ARTIFICIAL TEARS 15 ML OPH BOTH EYES SCH ×3 (09:37→21:46)
[2017-05-27] MEDS: DOXYCYCLINE 100 MG TAB PO SCH ×2 (09:38→21:47)
[2017-05-27] MEDS: LEVETIRACETAM (100 MG/ML) 5ML CUP GTB SCH ×2 (09:38→21:47)
[2017-05-27] MEDS: ASCORBIC ACID 500 MG TAB GTB SCH (09:38)
[2017-05-27] MEDS: FAMOTIDINE 20 MG INJ IV SCH (09:38)
[2017-05-27] MEDS: MULTIVITAMINS 30 ML CUP GTB SCH (09:38)
[2017-05-27] MEDS: DIVALPROEX SPRINKLE 125 MG CAP GTB SCH ×3 (09:38→21:48)
[2017-05-27] MEDS: LACTOBACILLUS RHAMNOSUS CAP PO SCH ×2 (09:39→21:48)
[2017-05-27 10:14] LABS: BASOPHILS % 0.3 % (0.0-2.0); EOSINOPHILS # 0.5 10^3/ul (0.0-0.5); EOSINOPHILS % 4.4 % (0.0-7.0); HEMATOCRIT 34.5 % (42.0-52.0); HEMOGLOBIN 10.8 g/dl (14.0-18.0); LYMPHOCYTES % 17.3 % (15.0-51.0); MEAN CORPUSCULAR HEMOGLOBIN 28.4 pg (29.0-33.0); MEAN CORPUSCULAR HGB CONC 31.3 g/dl (32.0-37.0); MEAN CORPUSCULAR VOLUME 90.8 fl (82.0-101.0); MEAN PLATELET VOLUME 10.7 fl (7.4-10.4); MONOCYTE # 1.1 10^3/ul (0.3-0.9); MONOCYTES % 10.1 % (0.0-11.0); NEUTROPHIL # 7.5 10^3/ul (1.6-7.5); NEUTROPHILS % 67.1 % (39.0-77.0); PLATELET COUNT 266 10^3/UL (140-415); RED CELL DISTRIBUTION WIDTH 17.5 % (11.5-14.5); WHITE BLOOD COUNT 11.2 10^3/ul (4.8-10.8)
--- NOTE | 2017-05-27 10:51 | PN ---
Date/Time of Note Date/Time of Note DATE: 05/27/17 TIME: 10:35 Assessment/Plan VTE Prophylaxis VTE Prophylaxis Intervention: SCD's Lines/Catheters IV Catheter Type (from Nrs): Saline Lock Urinary Cath still in place: Yes Reason Cath still needed: skin wounds contaminated by urine, other (indicate) Assessment/Plan Assessment/Plan 1. Sepsis secondary to UTI- resolving - Patients condition is improving and WBC trending downward. Remains afebrile - Cultures shows coag neg and continue on Doxy 100mg BID. - lactic acid normalized 2. Chronic encephalopathy - Unknown cause, no information in chart, CT head shows no acute issues - PEG tube - Likely at baseline as nursing report states that this is patient's baseline 3. hematuria- resolved - traumatic from parson placement - H/H stable 4. Epilepsy - Incomplete records from SNF, however a Keppra and Depakote level is ordered per SNF labs, with remote dosages with transfer documents - Continue Keppra and Depakote with Depakote levels daily to ensure therapeutic values 5. Hypotension- resolved 6. Severe diarrhea - Cdiff negative - will start probiotics 7. UTI - Continue on Doxy 8. Right upper thigh rash - appears to be folliculitis, improving - nontender and no warmth - on Doxycycline and will continue to monitor 9. Disposition - Patient is DNR - Monitoring WBC and once normalizes will send back to SNF Subjective 24 Hr Interval Summary Free Text/Dictation Patient resting comfortably in no acute distress. 4 beats of Vtach noted. Rash on right upper thigh improving. no other overnight events Exam/Review of Systems Vital Signs Vitals Vital Signs Date Time Temp Pulse Resp B/P Pulse Ox O2 Delivery O2 Flow Rate FiO2 05/27/17 08:08 89 20 98 Nasal Cannula 2.0 05/27/17 08:04 98.6 116/72 Intake and Output 05/26/17 05/26/17 05/27/17 15:00 23:00 07:00 Intake Total 1350 ml 1100 ml Output Total 725 ml 700 ml Balance 625 ml 400 ml Exam General: Patient is laying in bed, no acute distress. remains non-verbal Head: Normocephalic atraumatic Eyes: EOMI, pupils reactive to light Neck: Supple, nontender, midline Respiratory: coarse to auscultation bilaterally Cardiovascular: regular rate and rhythm. no obvious murmurs Gastrointestinal: non-tender to palpation, bowel sounds heard. Neurological: Moves all extremities spontaneously and to noxious stimuli Skin: right upper medial thigh erythema with folliculitis type appearance. not warm or tender. no discharge or drainage appreciated Results Result Diagram: 05/27/17 0703 05/26/17 0725 Results 24 hrs Laboratory Tests Test 05/27/17 07:03 White Blood Count 11.2 H Red Blood Count 3.80 L Hemoglobin 10.8 L Hematocrit 34.5 L Mean Corpuscular Volume 90.8 Mean Corpuscular Hemoglobin 28.4 L Mean Corpuscular Hemoglobin Concent 31.3 L Red Cell Distribution Width 17.5 H Platelet Count 266 Mean Platelet Volume 10.7 H Neutrophils % 67.1 Lymphocytes % 17.3 Monocytes % 10.1 Eosinophils % 4.4 Basophils % 0.3 Nucleated Red Blood Cells % 0.0 Neutrophils # 7.5 Lymphocytes # 2.0 Monocytes # 1.1 H Eosinophils # 0.5 Basophils # 0.0 Nucleated Red Blood Cells # 0.0 Valproic Acid (Depakene) Level 16 L Medications Medications Current Medications Lorazepam (Ativan) 0.5 mg Q6H PRN IV ANXIETY; Start 05/24/17 at 18:00 Ondansetron HCl (Zofran Inj) 4 mg Q6H PRN IV NAUSEA AND/OR VOMITING; Start at 18:00 Acetaminophen (Tylenol Tab) 650 mg Q6H PRN PO PAIN LEVEL 1-3 OR FEVER Last administered on 05/25/17 03:58; Admin Dose 650 MG; Start 05/24/17 at 18:00 Acetaminophen/ Hydrocodone Bitart ([place] (5/325)) 1 tab Q6H PRN PO PAIN LEVEL 4 -6; Start 05/24/17 at 18:00 Morphine Sulfate (morphine) 2 mg Q4H PRN IV PAIN LEVEL 7-10; Start 05/24/17 at 18:00 Bisacodyl (Dulcolax) 5 mg DAILY PRN PO CONSTIPATION; Start 05/24/17 at 18:00 Famotidine (Pepcid Iv) 20 mg Q12 IV Last administered on 05/27/17 09:38; Admin Dose 20 MG; Start 05/24/17 at 21:00 Eye Lubricant (Artificial Tears Oph) 1 drop TID BOTH EYES Last administered on 05/27/17 09:37; Admin Dose 1 DROP; Start 05/24/17 at 21:00 Ascorbic Acid (Vitamin C) 500 mg DAILY GTB Last administered on 05/27/17 09: 38; Admin Dose 500 MG; Start 05/25/17 at 09:00 Divalproex Sodium (Depakote Sprinkle) 1,000 mg TID GTB Last administered on 09:38; Admin Dose 1,000 MG; Start 05/24/17 at 21:00 Levetiracetam (Keppra Liquid) 500 mg BID GTB Last administered on 05/27/17 09 :38; Admin Dose 500 MG; Start 05/24/17 at 21:00 Magnesium Hydroxide (Milk Of Mag) 30 ml QHS PRN GTB CONSTIPATION; Start at 18:30 Multivitamins (Multivitamin) 30 ml DAILY GTB Last administered on 05/27/17 09 :38; Admin Dose 30 ML; Start 05/25/17 at 09:00 Doxycycline Hyclate (Vibramycin) 100 mg BID PO Last administered on 05/27/17 09:38; Admin Dose 100 MG; Start 05/26/17 at 21:00 Lactobacillus Acidophilus/ Rhamnosus (Culturelle) 1 cap BID PO Last administered on 05/27/17 09:39; Admin Dose 1 CAP; Start 05/26/17 at 21:00 OMID LANDEROS MD May 27, 2017 10:47
[2017-05-27] MEDS: FAMOTIDINE 20 MG TAB GTB SCH (21:47)
[2017-05-28] VITALS (8 sets, daily range): BP systolic 112–140; BP diastolic 60–88; PULSE 90–100; RESP 16–20
[2017-05-28] MEDS: ALBUTEROL/IPRATROPIUM (NEB) 3 ML AMP HHN SCH ×2 (08:00→13:40)
[2017-05-28] MEDS: LACTOBACILLUS RHAMNOSUS CAP PO SCH (09:00)
[2017-05-28 09:04] LABS: BASOPHILS % 0.2 % (0.0-2.0); EOSINOPHILS # 0.6 10^3/ul (0.0-0.5); EOSINOPHILS % 4.8 % (0.0-7.0); HEMOGLOBIN 10.9 g/dl (14.0-18.0); LYMPHOCYTES # 2.2 10^3/ul (0.8-2.9); LYMPHOCYTES % 16.8 % (15.0-51.0); MEAN CORPUSCULAR HEMOGLOBIN 28.2 pg (29.0-33.0); MEAN CORPUSCULAR HGB CONC 32.1 g/dl (32.0-37.0); MEAN CORPUSCULAR VOLUME 88.1 fl (82.0-101.0); MEAN PLATELET VOLUME 9.8 fl (7.4-10.4); MONOCYTE # 1.1 10^3/ul (0.3-0.9); MONOCYTES % 8.8 % (0.0-11.0); NEUTROPHIL # 8.8 10^3/ul (1.6-7.5); NEUTROPHILS % 67.9 % (39.0-77.0); PLATELET COUNT 307 10^3/UL (140-415); RED BLOOD COUNT 3.86 10^6/ul (4.70-6.10); RED CELL DISTRIBUTION WIDTH 17.3 % (11.5-14.5)
[2017-05-28 09:13] LABS: CALCIUM 9.2 mg/dl (8.4-10.2); CREATININE 0.76 mg/dl (0.61-1.24); MAGNESIUM 1.9 mg/dl (1.7-2.5); PHOSPHORUS 4.6 mg/dl (2.5-4.9); POTASSIUM 4.1 mmol/L (3.5-5.1)
[2017-05-28] MEDS: LEVETIRACETAM (100 MG/ML) 5ML CUP GTB SCH (09:59)
[2017-05-28] MEDS: DOXYCYCLINE 100 MG TAB PO SCH (09:59)
[2017-05-28] MEDS: DIVALPROEX SPRINKLE 125 MG CAP GTB SCH ×2 (09:59→12:29)
[2017-05-28] MEDS: ASCORBIC ACID 500 MG TAB GTB SCH (09:59)
[2017-05-28] MEDS: MULTIVITAMINS 30 ML CUP GTB SCH (09:59)
[2017-05-28] MEDS: ARTIFICIAL TEARS 15 ML OPH BOTH EYES SCH ×2 (09:59→12:29)
[2017-05-28] MEDS: FAMOTIDINE 20 MG TAB GTB SCH (10:06)
--- NOTE | 2017-05-28 11:43 | PN ---
Date/Time of Note Date/Time of Note DATE: 05/28/17 TIME: 11:33 Assessment/Plan VTE Prophylaxis VTE Prophylaxis Intervention: SCD's Lines/Catheters IV Catheter Type (from Nrs): Saline Lock Urinary Cath still in place: Yes Reason Cath still needed: skin wounds contaminated by urine Assessment/Plan Assessment/Plan 1. Sepsis secondary to UTI- resolved - Patients condition is improving and no elevated neutrophils present on blood work. Remains afebrile - Cultures shows coag neg and continue on Doxy 100mg BID, day 4 of antibiotics. will continue for 3 more days - lactic acid normalized 2. Chronic encephalopathy - Unknown cause, no information in chart, CT head shows no acute issues - PEG tube - Likely at baseline as nursing report states that this is patient's baseline 3. hematuria- resolved - traumatic from parson placement - H/H stable 4. Epilepsy - Incomplete records from SNF, however a Keppra and Depakote level is ordered per SNF labs, with remote dosages with transfer documents - Continue Keppra and Depakote with Depakote levels daily to ensure therapeutic values 5. Hypotension- resolved 6. Severe diarrhea- resolved - Cdiff negative - On probiotics 7. UTI - Continue on Doxy 8. Right upper thigh rash - appears to be folliculitis, improving - nontender and no warmth - on Doxycycline and will continue to monitor 9. Disposition - Patient is DNR - Medically stable for discharge back to SNF. continue on 3 more days of antibiotics Subjective 24 Hr Interval Summary Free Text/Dictation Patient doing well and rash on right upper thigh improving. No acute overnight events and no new issues. Exam/Review of Systems Vital Signs Vitals Vital Signs Date Time Temp Pulse Resp B/P Pulse Ox O2 Delivery O2 Flow Rate FiO2 05/28/17 11:18 98.3 95 16 117/67 98 05/28/17 08:02 Nasal Cannula 2.0 Intake and Output 05/27/17 05/27/17 05/28/17 15:00 23:00 07:00 Intake Total 75 ml 1000 ml 1250 ml Output Total 1700 ml 1500 ml Balance 75 ml -700 ml -250 ml Exam General: Patient is laying in bed, no acute distress. remains non-verbal Head: Normocephalic atraumatic Eyes: EOMI, pupils reactive to light Neck: Supple, nontender, midline Respiratory: coarse to auscultation bilaterally Cardiovascular: regular rate and rhythm. no obvious murmurs Gastrointestinal: non-tender to palpation, bowel sounds heard. Neurological: Moves all extremities spontaneously and to noxious stimuli Skin: rash on right upper medial thigh improving. No discharge or drainage appreciated Results Result Diagram: 05/28/1723 05/28/17 0823 Results 24 hrs Laboratory Tests Test 05/28/17 08:23 White Blood Count 13.0 H Red Blood Count 3.86 L Hemoglobin 10.9 L Hematocrit 34.0 L Mean Corpuscular Volume 88.1 Mean Corpuscular Hemoglobin 28.2 L Mean Corpuscular Hemoglobin Concent 32.1 Red Cell Distribution Width 17.3 H Platelet Count 307 Mean Platelet Volume 9.8 Neutrophils % 67.9 Lymphocytes % 16.8 Monocytes % 8.8 Eosinophils % 4.8 Basophils % 0.2 Nucleated Red Blood Cells % 0.0 Neutrophils # 8.8 H Lymphocytes # 2.2 Monocytes # 1.1 H Eosinophils # 0.6 H Basophils # 0.0 Nucleated Red Blood Cells # 0.0 Sodium Level 141 Potassium Level 4.1 Chloride Level 104 Carbon Dioxide Level 29 Anion Gap 12 Blood Urea Nitrogen 14 Creatinine 0.76 Glucose Level 129 Calcium Level 9.2 Phosphorus Level 4.6 Magnesium Level 1.9 Albumin 3.0 L Medications Medications Current Medications Lorazepam (Ativan) 0.5 mg Q6H PRN IV ANXIETY; Start 05/24/17 at 18:00 Ondansetron HCl (Zofran Inj) 4 mg Q6H PRN IV NAUSEA AND/OR VOMITING; Start at 18:00 Acetaminophen (Tylenol Tab) 650 mg Q6H PRN PO PAIN LEVEL 1-3 OR FEVER Last administered on 05/25/17 03:58; Admin Dose 650 MG; Start 05/24/17 at 18:00 Acetaminophen/ Hydrocodone Bitart ([place] (5/325)) 1 tab Q6H PRN PO PAIN LEVEL 4 -6; Start 05/24/17 at 18:00 Morphine Sulfate (morphine) 2 mg Q4H PRN IV PAIN LEVEL 7-10; Start 05/24/17 at 18:00 Bisacodyl (Dulcolax) 5 mg DAILY PRN PO CONSTIPATION; Start 05/24/17 at 18:00 Eye Lubricant (Artificial Tears Oph) 1 drop TID BOTH EYES Last administered on 05/28/17 09:59; Admin Dose 1 DROP; Start 05/24/17 at 21:00 Ascorbic Acid (Vitamin C) 500 mg DAILY GTB Last administered on 05/28/17 09: 59; Admin Dose 500 MG; Start 05/25/17 at 09:00 Divalproex Sodium (Depakote Sprinkle) 1,000 mg TID GTB Last administered on 09:59; Admin Dose 1,000 MG; Start 05/24/17 at 21:00 Levetiracetam (Keppra Liquid) 500 mg BID GTB Last administered on 05/28/17 09 :59; Admin Dose 500 MG; Start 05/24/17 at 21:00 Magnesium Hydroxide (Milk Of Mag) 30 ml QHS PRN GTB CONSTIPATION; Start at 18:30 Multivitamins (Multivitamin) 30 ml DAILY GTB Last administered on 05/28/17 09 :59; Admin Dose 30 ML; Start 05/25/17 at 09:00 Doxycycline Hyclate (Vibramycin) 100 mg BID PO Last administered on 05/28/17 09:59; Admin Dose 100 MG; Start 05/26/17 at 21:00 Lactobacillus Acidophilus/ Rhamnosus (Culturelle) 1 cap BID PO Last administered on 05/28/17 09:00; Admin Dose 1 CAP; Start 05/26/17 at 21:00 Famotidine (Pepcid) 20 mg Q12 GTB Last administered on 05/28/17 10:06; Admin Dose 20 MG; Start 05/27/17 at 21:00 OMID LANDEROS MD May 28, 2017 11:43
--- NOTE | 2017-05-28 11:47 | PDOCDIS ---
Discharge Instructions DIAGNOSIS Discharge Diagnosis 1. Sepsis secondary to UTI- resolved 2. Chronic encephalopathy 3. hematuria- resolved 4. Epilepsy 5. Hypotension- resolved 6. Severe diarrhea- resolved 7. UTI 8. Right upper thigh rash CONDITION Patient Condition: Fair HOME CARE INSTRUCTIONS: Special Diet: TUBE FEEDINGS FOLLOW UP/APPOINTMENTS Follow-up Plan 1. Follow up with PCP in 1 week 2. Continue antibiotics for 3 more days for UTI and folliculitis 3. Continue all medications as prescribed 4. If symptoms return, come back to ED OMID LANDEROS MD May 28, 2017 11:47
--- NOTE | 2017-05-28 11:47 | DS ---
Date/Time of Note Date/Time of Note DATE: 05/28/17 TIME: 11:47 Discharge Summary Admission/Discharge Info Admit Date/Time May 24, 2017 at 16:47 Discharge Date/Time Discharge Diagnosis 1. Sepsis secondary to UTI- resolved 2. Chronic encephalopathy 3. hematuria- resolved 4. Epilepsy 5. Hypotension- resolved 6. Severe diarrhea- resolved 7. UTI 8. Right upper thigh rash Patient Condition: Fair Procedures PROCEDURE: CT Brain without contrast. CLINICAL INDICATION: Chronic encephalopathy. TECHNIQUE: A CT of the brain was performed on a GE 64-slice CT scanner utilizing axial imaging from the skull base through the vertex without intravenous contrast. Multiplanar reformatted images were made. One or more the following dose reduction techniques were utilized: Automated exposure control, adjustment of the mA/ or kV according to patient's size, or use of iterative reconstruction technique. DICOM images are available for review. The CTDIvol is 44.7 mGy and the DLP is 900.3 mGycm. COMPARISON: None. FINDINGS: There is no intracranial hemorrhage, mass effect, or midline shift. No extra- axial fluid collection is seen. Moderately severe atrophy is identified with compensatory ventricular and sulcal enlargement. Moderately severe decreased attenuation is seen in the periventricular and deep white matter, compatible with microvascular ischemic disease. There is evidence of hypodensity extending into the subcortical white matter, particulate the frontal and temporal lobes, likely reflective of extensive microvascular ischemic change. No convincing cortical infarct is evident. The osseous structures and visualized paranasal sinuses are unremarkable. IMPRESSION: 1. No evidence of acute intracranial pathology. 2. Moderately severe diffuse atrophy. 3. There is moderately severe microvascular ischemic disease in the periventricular and deep white matter. PROCEDURE: Chest xray. CLINICAL INDICATION: Possible sepsis TECHNIQUE: A portable semiupright AP view of the chest was obtained. COMPARISON: None. FINDINGS: The cardiac silhouette is mildly enlarged. Lung volumes are low. There is mild pulmonary vascular congestion. The left lower lung zone is incompletely evaluated due to superimposition of the patient's hand. No focal consolidation is identified in the right lung. There is no evidence of a pleural effusion or pneumothorax. The skeletal structures and soft tissues are unremarkable. IMPRESSION: Mild cardiomegaly. Low lung volumes. Mild pulmonary vascular congestion. PROCEDURE: US Lower extremity Venous. CLINICAL INDICATION: Right leg edema TECHNIQUE: Multiple sonographic images of the right lower extremity deep venous system was obtained utilizing grayscale, color-flow, compressive sonography and doppler imaging with augmentation. The images were reviewed on a PACS workstation. COMPARISON: None. FINDINGS: There is normal compressibility and flow within the right common femoral, femoral, posterior tibial, peroneal and popliteal veins. IMPRESSION: No sonographic evidence for deep venous thrombosis. PROCEDURE: XR Chest. CLINICAL INDICATION: pain TECHNIQUE: Single portable view of the chest was obtained COMPARISON: DR BARTON 05/24/2017 FINDINGS: There are worsening extensive bilateral perihilar and lower lobe infiltrates. There is elevation of the right diaphragm. The cardiac silhouette is mildly enlarged. The heart, lungs and mediastinum are otherwise unchanged. . RPTAT: AA IMPRESSION: Worsening extensive bilateral perihilar and lower lobe infiltrates, may represent pulmonary vascular congestion. No other significant change. Elevation of the right diaphragm. Hx of Present Illness Patient is a 66-year-old male [facility] with a very little information and no HPI who presents to [facility] for tachycardia, and fever. According to nursing signout the patient has chronic encephalopathy and is currently at baseline which is alert but not oriented. Patient has a PEG tube and is laying on the bed with minimal movement. Patient's information was taken from the chart, patient is DO NOT RESUSCITATE per chart and there is a signed form. Patient also responds to noxious stimuli vigorously and moves all extremities. Patient appears to have adequate caloric intake but the reason for his encephalopathy is unknown at this time,. Some information can be taken from the chart which includes a diagnosis of epilepsy with Keppra and Depakote levels which were therapeutic. Assuming patient's is at baseline mentation, it appears patient has been admitted for UTI. Past medical history; unlikely complete, chronic encephalopathy of unknown cause , dysphasia, PEG tube, BPH, GERD, dyskinesia, epilepsy, sleep apnea Hospital Course Patient was admitted for sepsis secondary to urinary tract infection. Patient was started on IV antibiotics and given gentle fluids. All home medications were resumed. Patients sepsis was improving but found to have marielle tinged urine which resolved after flushing. Patient also noted to have discharged from ear that resolved as well. Patient was also noted to have erythema and raised bumps on right upper thigh that was warm and tender which appeared to be folliculitis. Urine cultures returned with 30-40K coag negative bacteria and patient changed to Doxycycline. Patients rash improved and remained afebrile. Patient still has a slightly elevated WBC but no neutrophils were within normal limits. patient was stable and discharged back to SNF with 3 more days of PO antibiotics. Home Meds Reported Medications Levetiracetam* (Keppra*) 500 Mg/5 Ml Solution, 500 MG GTB BID, BOTTLE 05/24/17 Divalproex Sodium* (Depakote* Sprinkle) 125 Mg Cap.sprink, 1000 MG GTB TID, #90 CAP 05/24/17 Dextran 70/Hypromellose (Artificials Tears Drops) 30 Ml Drops, 1 DROP BOTH EYES BID, BOTTLE 05/24/17 Magnesium Hydroxide* (Milk Of Magnesia*) 400 Mg/5 Ml Oral.susp, 30 ML GTB QHS Y for CONSTIPATION, ML 05/24/17 Bisacodyl* (Dulcolax*) 5 Mg Tablet.dr, 10 MG GTB Q48 Y for CONSTIPATION, TAB 05/24/17 Esomeprazole Mag Trihydrate (Nexium) 40 Mg Capsule.dr, 40 MG GTB AC BREAKFAST, # 30 CAP 05/24/17 Ascorbic Acid* (Vitamin C*) 500 Mg Capsule.sa, 500 MG GTB DAILY, CAP 05/24/17 Acetaminophen* (Acetaminophen* Susp) 325 Mg/10.15 Ml Solution, 325 MG GTB BID Y for PAIN, ML 05/24/17 Multivitamins* (Theragran*) 1 Tab Tab, 1 TAB GTB DAILY, TAB 05/24/17 Follow-up Plan 1. Follow up with PCP in 1 week 2. Continue antibiotics for 3 more days for UTI and folliculitis 3. Continue all medications as prescribed 4. If symptoms return, come back to ED Primary Care Provider Not On Staff Doctor Time spent on discharge: > 30 minutes Pending Labs Laboratory Tests Test 05/28/17 08:23 White Blood Count 13.010^3/ul (4.8-10.8) Red Blood Count 3.8610^6/ul (4.70-6.10) Hemoglobin 10.9g/dl (14.0-18.0) Hematocrit 34.0% (42.0-52.0) Mean Corpuscular Volume 88.1fl (82.0-101.0) Mean Corpuscular Hemoglobin 28.2pg (29.0-33.0) Mean Corpuscular Hemoglobin Concent 32.1g/dl (32.0-37.0) Red Cell Distribution Width 17.3% (11.5-14.5) Platelet Count 23623^3/UL (140-415) Mean Platelet Volume 9.8fl (7.4-10.4) Neutrophils % 67.9% (39.0-77.0) Lymphocytes % 16.8% (15.0-51.0) Monocytes % 8.8% (0.0-11.0) Eosinophils % 4.8% (0.0-7.0) Basophils % 0.2% (0.0-2.0) Nucleated Red Blood Cells % 0.0/100WBC (0.0-0.0) Neutrophils # 8.810^3/ul (1.6-7.5) Lymphocytes # 2.210^3/ul (0.8-2.9) Monocytes # 1.110^3/ul (0.3-0.9) Eosinophils # 0.610^3/ul (0.0-0.5) Basophils # 0.010^3/ul (0.0-0.1) Nucleated Red Blood Cells # 0.010^3/ul (0.0-0.0) Sodium Level 141mmol/L (135-144) Potassium Level 4.1mmol/L (3.5-5.1) Chloride Level 104mmol/L (97-110) Carbon Dioxide Level 29mmol/L (21-31) Anion Gap 12 (8-16) Blood Urea Nitrogen 14mg/dl (7-20) Creatinine 0.76mg/dl (0.61-1.24) Glucose Level 129mg/dl (70-220) Calcium Level 9.2mg/dl (8.4-10.2) Phosphorus Level 4.6mg/dl (2.5-4.9) Magnesium Level 1.9mg/dl (1.7-2.5) Albumin 3.0g/dl (3.3-4.9) OMID LANDEROS MD May 28, 2017 11:47
== END 2017-05-28 16:15 | DRG 871 ==
LOC: E/R 13:52 → TEL 16:47
PROVIDERS: ADMIT Internal Medicine; ATTEND Internal Medicine
DX: A41.9 Sepsis, unspecified organism (principal); G93.49 Other encephalopathy; I95.9 Hypotension, unspecified; H92.10 Otorrhea, unspecified ear; N39.0 Urinary tract infection, site not specified; Z93.1 Gastrostomy status; K21.9 Gastro-esophageal reflux disease without esophagitis; G40.909 Epilepsy, unspecified, not intractable, without status epilepticus; R19.7 Diarrhea, unspecified; N40.0 Benign prostatic hyperplasia without lower urinary tract symptoms; G47.33 Obstructive sleep apnea (adult) (pediatric); R31.9 Hematuria, unspecified; Z66 Do not resuscitate; L73.8 Other specified follicular disorders
CPT/HCPCS: 36415; 70450; 71010; 80048; 80053; 80061; 80069; 80164; 80202; 81001; 81003; 83605; 83735; 83880; 84100; 84443; 84484; 85025; 85610; 85730; 87040; 87045; 87070; 87075; 87081; 87086; 92610; 93005; 93306; 93971; 94640; 94664; 96374; 96375; J2185; J3370; J7030; J7050

== ENCOUNTER 2018-03-12 10:00 | Inpatient (IN) | END 2018-03-16 17:57 | DRG 871 ==